=== PATIENT | male | born 1985 | race Caucasian/White ===

== ENCOUNTER → 2021-05-24 16:11 | Outpatient (CLI) | payer OTHER, MEDICAID, SELFPAY ==
--- NOTE | 2021-05-24 | DI.RAD.S_ITS ---
PROCEDURE: XR HAND RT MIN 3V INDICATIONS: localized swelling, mass and lump, rt upper limb TECHNIQUE: 3 views of the hand(s) acquired. COMPARISON: None. FINDINGS: Bones: No fractures or dislocations. Carpal bones are normally aligned. No suspicious bony lesions. Soft tissues: No suspicious soft tissue calcifications. IMPRESSION: No definite radiographic abnormality. If pain persists with conservative management, consider cross sectional imaging such as CT or MRI for further assessment. Dictated by: Rahul PALMA Interpreted: Capri Velez MD on 05/24/2021 at 17:07 Transcribed by: HENRY on 05/24/2021 at 17:07 Approved by: Capri Velez M.D. on 05/24/2021 at 20:13
== END ==
PROVIDERS: Referring Provider Naturopath; Visit Provider Naturopath
DX: R22.31 Localized swelling, mass and lump, right upper limb (principal)
CPT/HCPCS: 73130